=== PATIENT | female | born 1970 | race Caucasian/White ===

== ENCOUNTER 2024-05-16 15:38 | Emergency (ER) | payer MEDICARE ==
[~2024-05-16] VITALS: Ht 175.3 cm; Wt 78.2 kg
[2024-05-16 15:53] VITALS: TEMP 97
[2024-05-16 18:35] LABS: BASOPHILS # (AUTO) 0.1 X10'3 (0-0.2); EOSINOPHILS % (AUTO) 0.5 % (0-6); LYMPHOCYTES # (AUTO) 1.4 X10'3 (1.1-4.8); LYMPHOCYTES % (AUTO) 15.3 % (21-51); MEAN PLATELET VOLUME 7.4 FL (7.4-10.4); MONOCYTES # (AUTO) 1.3 X10'3 (0-0.9); MONOCYTES % (AUTO) 13.6 % (2-12); NEUTROPHILS # (AUTO) 6.5 X10'3 (1.8-7.7); NEUTROPHILS % (AUTO) 69.6 % (42-75); PLATELET COUNT 521 X10'3 (140-440); WHITE BLOOD COUNT 9.4 X10'3 (4.5-11.0)
[2024-05-16 18:42] LABS: ALBUMIN 3.6 G/DL (3.4-5.0); ANION GAP 8 (8-16); BLOOD UREA NITROGEN 6 MG/DL (7-18); BUN/CREATININE RATIO 7.5 (10.0-20.0); CHLORIDE 101 MMOL/L (99-107); GLUCOSE 121 MG/DL (70-104); POTASSIUM 4.4 MMOL/L (3.5-5.1); SODIUM 135 MMOL/L (135-145); TOTAL CARBON DIOXIDE 25.7 MMOL/L (24-32); eCRCL 85 ML/MIN; eGFR 75 ML/MIN
[2024-05-16 18:57] LABS: HEMATOCRIT 35.6 % (35.0-45.0); HEMOGLOBIN 11.3 g/dl (12.0-16.0); MEAN CORPUSCULAR HEMOGLOBIN 20.7 PG (27.0-31.0); MEAN CORPUSCULAR HGB CONC 31.7 g/dL (33.0-36.5); MEAN CORPUSCULAR VOLUME 65.4 FL (78-98); RED BLOOD COUNT 5.45 X10'6 (4.20-5.60)
[2024-05-16 18:58] LABS: RED CELL DISTRIBUTION WIDTH 20.4 % (11.5-14.5)
[2024-05-16 19:39] LABS: ANISOCYTOSIS 2+; MICROCYTOSIS 2+; PLATELET ESTIMATE INCREASED
[2024-05-16 19:49] VITALS: BP 133/92; PULSE 109; O2SAT 97
[2024-05-16] MEDS ORDERED: AMOX500C2 PO (19:53)
[2024-05-16] MEDS: amoxicillin 250mg capsule PO ONE (20:24)
[2024-05-16] MEDS: ondansetron 4mg rapidly disintigrating tab PO ONE (20:24)
[2024-05-16 20:26] VITALS: RESP 16
== END 2024-05-16 20:28 | disposition home or self-care (01) ==
LOC: ER 15:38
DX: R59.1 Generalized enlarged lymph nodes (principal)
CPT/HCPCS: 36415; 80048; 83605; 84145; 85008; 85025; 87040; 99283

== ENCOUNTER 2025-04-03 14:04 | Outpatient (CLI) | payer MEDICARE ==
[~2025-04-03] VITALS: Ht 160.7 cm; Wt 71.2 kg
[2025-04-03] MEDS: albuterol 2.5 MG/3 ML nebule NEB ONE (15:40)
[2025-04-03 15:41] VITALS: PULSE 121; RESP 16; O2SAT 91
[2025-04-03 15:55] VITALS: PULSE 136; RESP 16
--- NOTE | 2025-04-03 16:33 | PROCEDURE NOTE - Respiratory ---
Procedure Note-Respiratory Providers to CC Copies To 1: REBECCA CALHOUN MD Procedure Name: This is a complete pulmonary function study dated April 03, 2025. Spirometry measurements: There is very significant reduction in both the forced vital capacity and the FEV1. The FEV1 ratio is normal. All of the measured fl ow rates show some degree of reduction. After inhaled bronchodilator was administered, there is no appreciable change in the flow volume curve. Spirometry measurements suggest elements of obstructive ventilatory defect together with elements of restrictive ventilatory defect. Lung volume measurements: The total lung capacity is significantly reduced at 57% predicted value. This confirms a restrictive ventilatory defect. The functional residual capacity is at the lower limit of normal. Lung diffusion measurement: The DLCO is depressed at 58% predicted value. The KVO measurement is actually in the normal range. The alveolar volume measurement is significantly reduced. Airway resistance measurement: The airway resistance is elevated. Conclusion: This study is severely abnormal. There is combined abnormality including elements of restrictive ventilatory defect together with obstructive ventilatory defect. The airway obstruction is consistent with the patient's diagnosis of COPD. The restrictive ventilatory process may relate to the patient's metastatic cancer to the lung. We have no previous studies for comparison. Close pulmonary follow-up is recommended. JULIO JOSE MD Apr 03, 2025 16:33
== END 2025-04-03 23:59 | disposition home or self-care (01) ==
LOC: RT 14:04
PROVIDERS: ATTEND Internal Medicine
DX: J44.9 Chronic obstructive pulmonary disease, unspecified (principal)
CPT/HCPCS: 94060; 94727; 94729; 94760; J7030

== ENCOUNTER 2025-05-12 13:33 | Inpatient (IN) | payer MEDICARE ==
[~2025-05-12] VITALS: Ht 162.6 cm; Wt 54.0 kg
--- NOTE | 2025-05-12 13:51 | ELECTROCARDIOGRAPH REPORT ---
[facility] Test Date: 2025-05-12 Test Time: 13:39:33 Pat Name: LIBERTY MORRIS Department: EMERGENCY ROOM [id number] Room: [place] [address] Gender: F Application Support: : 1970 Requested By: REG JACOBO Order Number: [id number] Reading MD: Dr. JUAN C Ruiz Measurements Intervals [place] Rate: 101 P: 69 NE: 151 QRS: 128 QRSD: 106 T: -24 QT: 372 QTc: 483 Interpretive Statements Sinus tachycardia Right axis deviation Low voltage, precordial leads Nonspecific T abnormalities, inferior leads Electronically Signed On 05-15-2025 19:22:[address] JUAN C Ruiz Please click the below link to view image of tracing.
[2025-05-12 14:21] LABS: MEAN PLATELET VOLUME 7.5 FL (7.4-10.4); RED CELL DISTRIBUTION WIDTH 20.3 % (11.5-14.5)
[2025-05-12 14:26] LABS: INR 1.6 INR
--- NOTE | 2025-05-12 14:26 | RADIOLOGY REPORT ---
EXAM: DI CHEST,SINGLE VIEW CLINICAL HISTORY: SOB TECHNIQUE: Single AP view of the chest WID: COMPARISON: None FINDINGS: Lines and tubes: Right IJ chest port with the tip projecting over the low SVC Chest: Upper limits of normal-sized heart. Patchy and confluent mixed airspace opacities bilaterally. No pneumothorax or definite pleural effusion. The osseous structures are grossly intact. IMPRESSION: 1. Diffuse patchy and confluent mixed airspace opacities which could reflect Multifocal Pneumonia. 2. Correlate with clinical history as metastatic disease can also contribute to this appearance if there is a history of malignancy.
[2025-05-12 14:32] LABS: CREATININE 1.88 MG/DL (0.40-0.90); PRO BRAIN NATRIURETIC PEPTIDE 17341 PG/ML (0-125); TOTAL CARBON DIOXIDE 27.5 MMOL/L (24-32); eCRCL 29 ML/MIN; eGFR 28 ML/MIN
[2025-05-12 14:38] LABS: APTT 31 SECONDS (22-32); BANDS% (MANUAL) 2.0 % (0-10); LYMPHOCYTES % (MANUAL) 7.0 % (21-51); METAMYLEOCYTES% (MANUAL) 1.0 % (0-0); MONOCYTES % (MANUAL) 6.0 % (2-12); NEUTROPHILS % (MANUAL) 84.0 % (42-75); PLATELET ESTIMATE INCREASED
--- NOTE | 2025-05-12 14:47 | Physician Documentation ---
History of Present Illness ~ Chief Complaint: Shortness of Breath Stated Complaint: SOB Time Seen by MD: 13:42 Primary Medical Doctor: TAINA ([facility]) Source: patient Mode of Arrival: EMS Exam Limitations: no limitations HPI 54-year-old female with metastatic colon to the lungs who is there due to the worsening of her chronic shortness of breath when started yesterday. She states it got progressively worse to the point that she decided to come to the ER today. Patient did discontinue her Eliquisa week ago due to an upcoming lung biopsy tentatively scheduled next week to see if she will benefit from a new chemotherapy drug. Patient has a cough but this is not unusual for her given her cancer. Patient denies fever, chills, chest pain, abdominal pain, sinus pain, sore throat, urinary symptoms. Patient has no LE edema. Medication Reconciliation Allergies: Coded Allergies: No Known Allergies (Unverified , 05/16/24) Scheduled Methadone Hcl (Methadone Hcl), 1 TAB PO BID, (Reported) Miscellaneous Medications Gabapentin (Gabapentin), 200, (Reported) Oxycodone Hcl (Oxycodone Hcl), (Reported) Past Medical History Past Medical History: Colon Cancer, Lung Cancer Past Surgical History: no surgical history Review of Systems All Other Systems at this time: Reviewed and Negative Physical Exam Vital Signs: Temperature: 97.4, Source: Oral, Heart Rate: 99, Respiratory Rate: 17, BP: 94/53, Pulse Oximetry: 93, Weight: 54.000 Physical Exam GENERAL: Alert, MILD DISTRESS WHEN PATIENT STARTS TALKING SHE IS CLEARLY SHORT OF BREATH, DIFFICULTY SPEAKING IN COMPLETE SENTENCES. HEENT: NCAT, EOMI, PERRL, normal oropharynx, moist oral mucosa. NECK: Supple, trachea midline. CARDIAC: Regular rate and rhythm, no murmurs, rubs, or gallops. Equal distal pulses. No lower extremity edema, cap refill less than 2 seconds. RESPIRATORY: Equal breath sounds, clear to auscultation bilaterally, no respira tory distress. GASTROINTESTINAL: Non distended, soft, nontender, No guarding or rebound. MUSCULOSKELETAL: Normal range of motion, nontender, no swelling. NEUROLOGICAL: Awake, alert, and oriented x 3. SKIN: Warm/dry, no pallor, no rash. PSYCH: Alert and appropriate. Affect congruent with mood. Speech is clear. Good eye contact. Progress Results/Orders Results/Orders Orders - OPPECHYNAO,REG T PA Chest,Single View (05/12/25 14:05) Monitor (05/12/25 13:44) Culture Blood (05/12/25 14:41) Covid19 Binax Poc Result Entry (05/12/25 14:41) Heparin 25,000 Unit/250ml Bag (Heparin 2 (05/12/25 15:10) Heparin 10,000 Unit/Ml 1ml (Heparin 10,0 (05/12/25 15:10) Cbc/Diff (05/13/25 03:00) Cbc/Diff (05/14/25 03:00) Cbc/Diff (05/15/25 03:00) Cbc/Diff (05/16/25 03:00) Cbc/Diff (05/17/25 03:00) Cta Chest Pe (05/12/25 16:02) Dvt Ptt (05/12/25 22:00) Page Hospitalist (05/12/25 18:13) Normal Saline 1000ml (0.9% Sodium Chlori (05/12/25 18:25) Completed Orders - REG JACOBO T PA Electrocardiogram (05/12/25 13:44) Cbc/Diff (05/12/25 13:44) Chest,Single View (05/12/25 14:05) PBNP (05/12/25 13:44) BMP (05/12/25 13:44) PTT (05/12/25 13:44) Pt Inr (05/12/25 13:44) D-Dimer (05/12/25 13:44) Hs Troponin I W Calculations (05/12/25 13:44) Hs Troponin I W Calculations (05/12/25 15:44) Man Diff (05/12/25 14:01) Lacticsepsis (05/12/25 14:41) Procalcitonin (05/12/25 14:41) Influenza Type A&B Rapid Test (05/12/25 14:41) Heparin Drip Dvt/Pe*Rph Dose (Heparin (05/12/25 15:00) Normal Saline 1000ml (0.9% Sodium Chlori (05/12/25 15:00) Heparin 10,000 Unit/Ml 1ml (Heparin 10,0 (05/12/25 15:10) Message To Nursing (05/12/25 15:15) Cta Chest Pe (05/12/25 16:02) Iohexol 350mg/Ml 100ml (Omnipaque 350mg/ (05/12/25 16:17) Lactic,2hr (05/12/25 17:01) Ceftriaxone 2gm/D5w 50ml Bag (Rocephin 2 (05/12/25 18:20) Medications Received in ER Medications (Trade) Dose Ordered Sig/Deidre Route PRN Reason Start Time Stop Time Status Last Admin Dose Admin (0.9% sodium chloride (NS) 1000ml IV soln) 1,000 ml ONCE ONCE IVB 05/12/25 15:00 05/12/25 15:01 DC 05/12/25 16:03 1,000 ML (heparin 10,000 unit/ml 1ml inj) 4,300 units ONCE ONCE IV 05/12/25 15:10 05/12/25 15:11 DC 05/12/25 16:01 4,300 UNITS Heparin Sodium/ Dextrose 250 ml @ 10 mls/hr Q25H PRN IV TO MAINTAIN PTT WITHIN RANGE 05/12/25 15:10 05/12/25 16:02 10 MLS/HR Vital Signs 05/12/25 05/12/25 05/12/25 05/12/25 13:36 14:08 14:09 16:34 Temp 97.4 97.4 Pulse 101 99 82 Resp 16 17 18 B/P (MAP) 94/53 94/53 (67) 171/87 (115) Pulse Ox 91 93 93 O2 Flow Rate 0 05/12/25 18:36 Pulse 87 Resp 18 B/P (MAP) 134/53 (80) Pulse Ox 93 O2 Flow Rate 0 Laboratory Tests Test 05/12/25 14:01 05/12/25 14:03 05/12/25 15:15 05/12/25 15:43 White Blood Count 14.9 H Red Blood Count 4.10 L Hemoglobin 10.2 L Hematocrit 32.3 L Mean Corpuscular Volume 78.7 Mean Corpuscular Hemoglobin 24.9 L Mean Corpuscular Hemoglobin Concent 31.7 L Red Cell Distribution Width 20.3 H Platelet Count 643 H Mean Platelet Volume 7.5 Neutrophils (%) (Auto) 87.7 H Lymphocytes (%) (Auto) 5.4 L Monocytes (%) (Auto) 6.6 Eosinophils (%) (Auto) 0.1 Basophils (%) (Auto) 0.2 Neutrophils # (Auto) 13.0 H Lymphocytes # (Auto) 0.8 L Monocytes # (Auto) 1.0 H Eosinophils # (Auto) 0.0 Basophils # (Auto) 0.0 CBC Comment Differential Total Cells Counted 100 Neutrophils % (Manual) 84.0 H Band Neutrophils % 2.0 Lymphocytes % (Manual) 7.0 L Monocytes % (Manual) 6.0 Metamyelocytes % 1.0 H Platelet Estimate Increased Red Blood Cell Morphology Perf Polychromasia 1+ Hypochromasia 1+ Basophilic Stippling Anisocytosis 3+ Microcytosis 1+ Prothrombin Time 15.3 H INR International Normalized Ratio 1.6 Activated Partial Thromboplast Time 31 D-Dimer 22.76 H D-Dimer Comment Coagulation Comments Sodium Level 133 L Potassium Level 5.6 H Chloride Level 96 L Carbon Dioxide Level 27.5 Anion Gap 10 Blood Urea Nitrogen 32 H Creatinine 1.88 H Estimated GFR/1.73 m2 28 BUN/Creatinine Ratio 17.0 Glucose Level 113 H Calcium Level 8.8 Troponin I High Sensitivity 423 *H 405 *H Pro-B-Type Natriuretic Peptide 66003 H Albumin 1.8 L Procalcitonin 2.01 H Chemistry Comments Lactic Acid Level 3.9 H 3.0 H Influenza Type A Antigen Negative Influenza Type B Antigen Negative SARS-CoV-2 Antigen (Rapid) Negative Troponin I High Sens Percent Delta 4 Troponin I Hi Sens Absolute Change -18 Microbiology Date/Time Source Procedure Growth Status 05/12/25 15:43 Blood Iv Start Blood Culture - Preliminary NEGATIVE (LESS THAN 24 HOURS) Resulted Heart Score: Heart Score Response (Comments) Value History Slightly Suspicious 0 EKG Normal 0 Age 45-64 1 Risk Factors 1 or 2 risk factors 1 Troponin 1-2 x's Normal limit 1 Total 3 Medical Decision Making Additional information obtaine: old records Findings previous visits Heart Score: 3 Differential Dx:Considerations: Include: anxiety, asthma, bronchitis, cardiogenic shock, CHF, COPD, dysrhythmia, hypertension, accelerated, hypertension, essential, hypertension, malignant, hyperventilation, hyponatre estevan, myocardial infarction, panic attack, pneumonia, pneumonitis, pneumothorax, PSVT, pulmonary embolism, respiratory distress, respiratory failure, sinusitis, upper resp. infection, other Departure Time of Disposition: 19:02 Disposition: 01 HOME / SELF CARE / HOMELESS Impression: Primary Impression: metastatic colon cancer to liver and lungs Additional Impressions: acute on chronic sob Hypoxic Condition: Fair Referrals: NO PRIMARY CARE PROVIDER (PCP) Education Educated: Patient Educated regarding: diagnosis, treatment, need for follow up Signature Scribe Signature: x Attestation: REG Beal May 12, 2025 14:47
[2025-05-12] MEDS: HEPARIN DRIP DVT/PE -**PHARMACIST TO DOSE IV ONE (15:00)
[2025-05-12] MEDS ORDERED: heparin 10,000 units/1 ML INJ IV PRN (15:10)
[2025-05-12 15:48] LABS: INFLUENZA TYPE A ANTIGEN RAPID NEGATIVE (Negative); INFLUENZA TYPE B ANTIGEN RAPID NEGATIVE (Negative)
[2025-05-12] MEDS: heparin 10,000 units/1 ML INJ IV ONE (16:01)
[2025-05-12] MEDS: heparin 25,000 UNIT/250ml bag 250 ML IV PRN (16:02)
[2025-05-12] MEDS: MESSAGE TO NURSING IV ONE (16:02)
[2025-05-12] MEDS: normal saline 1000ML IV soln IVB ONE (16:03)
--- NOTE | 2025-05-12 17:57 | RADIOLOGY REPORT ---
EXAM: CT CTA CHEST PE W/ IV CONTRAST HISTORY: sob, d dimer of 22, metastatic colon ca to lungs TECHNIQUE: CT angiogram was performed. CT scans at this facility use dose modulation, iterative reconstruction, and/or weight based dosing when appropriate to reduce radiation dose to as low as reasonably achievable. Coronal and sagittal reformations and maximum intensity projection images were created from the transaxial source data by the ultrasound technologist and workstation, as well as 3-D volume rendered images with MIPs. COMPARISON: None FINDINGS: [LOWER NECK]: Unremarkable [LYMPH NODES/MEDIASTINUM]: prominent mediastinal lymph nodes correlated paratracheal lymph node measures 1.9 cm. Right hilar lymph node measures 1.7 cm. [CARDIOVASCULAR]: Normal cardiac size. No pericardial effusion. No aneurysmal dilatation of the great vessels. No significant coronary artery calcifications. [PULMONARY ARTERIES]: No pulmonary arterial filling defect. Normal caliber of the main pulmonary artery. No evidence of elevated right heart pressures. [UPPER ABDOMEN]: Extensive hepatic metastases with cannonball lesions. Abnormal left adrenal gland mass, 2.4 cm. Paraesophageal and gastrohepatic and partially visualized sang hepatis lymphadenopathy [MUSCULOSKELETAL]: No acute fracture or aggressive focal osseous lesion. [CHEST WALL]: Unremarkable. [LUNG PARENCHYMA/PLEURAL SPACE]: Extensive cannonball lesions with superimposed marginal areas of ground-glass extensively involving the majority of the long with peribronchovascular Superimposed distribution compatible with both hematogenous and lymphatic spread. No pleural effusion or pneumothorax. IMPRESSION: 1. No CTA evidence of pulmonary embolism. extensive pulmonary, hepatic and lymphatic metastatic disease.
[2025-05-12] MEDS ORDERED: OXYC10TA47 PO (18:46)
[2025-05-12] MEDS ORDERED: GABA-530 PO (18:46)
[2025-05-12] MEDS ORDERED: METH-806 PO (18:46)
[2025-05-12] MEDS: normal saline 1000ml 2,000 ML IV ONE (18:59)
[2025-05-12] MEDS: CefTRIAXone 2gm/D5W 50ml BAG 50 ML IV ONE (19:00)
[2025-05-12] MEDS ORDERED: methadone 10mg tablet PO ONE (19:15)
[2025-05-12] MEDS ORDERED: ondansetron 4mg rapidly disintigrating tab PO PRN (19:30)
[2025-05-12] MEDS ORDERED: magnesium hydroxide 30ml (MOM) UD suspension PO PRN (19:30)
[2025-05-12] MEDS ORDERED: mag hydrox/Alum hydrox/simeth 30ml oral suspension PO PRN (19:30)
[2025-05-12] MEDS ORDERED: potassium Cl 20 mEq SR tablet PO PRN ×2 (19:30)
[2025-05-12] MEDS ORDERED: magnesium Cl slow-release 64mg tablet PO PRN (19:30)
[2025-05-12] MEDS ORDERED: morphine 4 MG/ML inj SYRINge IV PRN (19:30)
[2025-05-12] MEDS ORDERED: magnesium sulf-water 4G/100mL 100 ML IV PRN (19:30)
[2025-05-12] MEDS ORDERED: potassium Cl 40MEQ/1/2NS 520ml 520 ML IV PRN (19:30)
[2025-05-12] MEDS ORDERED: magnesium sulf-water 2g/50mL 50 ML IV PRN (19:30)
[2025-05-12] MEDS ORDERED: ondansetron/PF 4mg/2ml inj IV PRN (19:30)
[2025-05-12] MEDS: K and/or MAG REPLACEMENT MC SCH (20:00)
[2025-05-12] MEDS: docusate sod 100mg capsule PO SCH (20:00)
--- NOTE | 2025-05-12 20:26 | HISTORY AND PHYSICAL-Residence ---
History & Physical Providers to CC Resident Creating Document: BLAKE WYATT, RES ~ History of Present Illness Primary Medical Doctor: TAINA ([facility]) Reason for Admit\Complaint: Shortness of Breath History of Present Illness 54-year-old female with a known history of metastatic colon cancer to the lungs, initially diagnosed in September 2020, presents to the Emergency Department due to worsening chronic shortness of breath that began yesterday. The dyspnea has progressively worsened, prompting her to seek emergency care today. She reports a chronic cough, which is typical for her due to her cancer but notes that it has recently worsened and is occasionally associated with abdominal pain. At home, her oxygen saturation was noted to be 81% on room air. She is not on home oxygen therapy but currently requires 4 L of supplemental oxygen in the ED. She also reports associated nausea and vomiting, though she denies any hematemesis. The patient was previously on intermittent chemotherapy and started Stivarga approximately six months ago. She recently discontinued Stivarga as her oncologist plans to initiate a new chemotherapy regimen, though she is unsure of the name of the new medication. Additionally, she stopped taking Eliquis one week ago in preparation for a lung biopsy tentatively scheduled for next week to assess candidacy for the new treatment. She denies fever, chills, chest pain, sinus pain, sore throat, urinary symptoms, and lower extremity edema. Allergies: Coded Allergies: No Known Allergies (Unverified , 05/16/24) Home Medications Home Medications Active Reported Gabapentin 100 Mg Capsule 200 Oxycodone Hcl 10 Mg Tablet Methadone Hcl 5 Mg Tablet 1 Tab PO BID Past Surgical History Surgical History Comment No surgical history Past Social History Social History Comment Primary care physician-[facility] Oncologist-Dr. Fitzgerald- [facility] [employer] Blacksmith-Dr. Paige Mendoza She lives in her home with her She quit smoking 20 years ago-previously used to smoke 1 cigarette a day during her 30s She is not an alcohol user, denies any substance use ROS All Other Systems: Reviewed and Negative Constitutional: Reports: no symptoms reported Eyes: Reports: no symptoms reported Respiratory: Reports: cough (Patient has a history of chronic cough), shortness of breath (Patient endorses worsening of the shortness of breath, today her pulse oximeter at home shows saturation of 80%) Cardiovascular: Reports: no symptoms reported Gastrointestinal: Reports: abdominal pain Genitourinary: Reports: no symptoms reported Female Genitalia: Reports: no reported symptoms Neurological: Reports: no symptoms reported Musculoskeletal: Reports: no symptoms reported Integumentary: Reports: no symptoms reported Allergic/Immunologic: Reports: no symptoms reported Hematologic/Lymphatic: Reports: no symptoms reported Endocrine: Reports: no symptoms reported Psychiatric: Reports: no symptoms reported Exam Vitals: Vital Signs Date Time Temp Pulse Resp B/P (MAP) Pulse Ox O2 Delivery O2 Flow Rate FiO2 05/12/25 19:34 05/12/25 18:36 87 18 93 0 05/12/25 14:08 97.4 General: GENERAL: Awake, alert, oriented. HEENT : Normocephalic, atraumatic, pupils equal and reactive to light, extraocular movements intact, mild conjunctival pallor ,oral mucosa dry. NECK: neck is supple, trachea midline, mild right cervical lymphadenopathy, no thyromegaly, no JV distention RESPIRATORY: Chest expansion equal bilaterally, bilateral crackles heard all over the lung kunz, No use of accessory muscles, no tenderness on palpation, CARDIOVASCULAR: S1 and S2 heard, no murmurs, no rubs, or gallops ABDOMEN: Soft, nontender, nondistended, bowel sounds present and normoactive. NEUROLOGICAL: Alert, oriented, normal memory, speech is normal Cranial nerves II-XII- intact Motor strength 5/5 Sensation-intact in all extremities Reflexes +2 and symmetrical Coordination is intact EXTREMITIES: No Edema, peripheral pulses felt, no deformities, mild peripheral cyanosis noted over the fingernails Psychiatric:Appropriate mood and affect,No hallucinations or suicidal ideation Diagnostic Data Last Recorded Lab Results: 05/13/258 05/13/25 0136 Diagnostic Data: Laboratory Tests Test 05/12/25 14:01 Prothrombin Time 15.3 SECONDS (9.0-12.0) H INR International Normalized Ratio 1.6 INR Activated Partial Thromboplast Time 31 SECONDS (22-32) D-Dimer 22.76 MG/L FEU (0-0.50) H D-Dimer Comment Coagulation Comments Advance Care Planning Advanced Care plannin - 30 Minutes Additional Plan 54 years old female with past medical history of metastatic colon cancer he is currently evaluated for sepsis Sepsis 2/2 multifocal pneumonia Temperature-97, respiratory rate 26, heart rate-103 Lactate-3, 3.3, 2.3 Differentials include-metastatic lung disease ED gvhaiu-X-mcjeb is 22.7 and the patient was immediately started on heparin protocol, later CTA rules out PE, and after that heparin protocol was held and patient was also received ceftriaxone and Zithromax in ED once Patient received IV fluid per protocol in ED and we started the patient on IV normal saline 100 cc/hour Started patient on IV Zosyn and IV vancomycin pharmacy to dose Given a dose of Solu-Medrol 125 mg once and started IV Solu-Medrol 40 mg IV b.i.d. Follow up with blood culture and daily labs Hypoxemic respiratory failure 2/2 multifocal pneumonia Differentials-congestive heart failure as patient's pro [id number] Patient is currently on 4 L oxygen maintaining a saturation 94 Started patient on IV Zosyn and IV vancomycin pharmacy to dose Given a dose of Solu-Medrol 125 mg once and started IV Solu-Medrol 40 mg IV b.i.d. Follow up with blood culture and daily labs Follow up with echocardiogram Acute kidney injury 2/2 vasomotor neuropathy BUN-32, creatinine-1.88 Patient received IV fluids in ED and patient is currently on normal saline 100 cc/hour Follow up with spot urine studies Troponinemia possibly secondary to sepsis Type 2 CO Initial troponin-405, 338 trending down History of chronic pain Started on home med gabapentin Continue home med after med Code Status: Full DVT prophylaxis: Heparin subQ Analgesia/Sedation: Morhpine Line/tube: Peripheral PT: Order Prognosis: Guarded Disposition: Patient will be monitored in PCU with telemetry Blake Wyatt PGY1-Internal Medicine Resident Date of Service: May 12, 2025 Billing Provider: VALE RIOS MD Assessment/Plan Assessment agree with resident IM 3 BLAKE WYATT, RES May 12, 2025 20:26 VALE RIOS MD May 13, 2025 04:28
[2025-05-12] MEDS: azithromycin/NS 500mg/250ml 250 ML IV ONE (21:45)
[2025-05-12] MEDS: normal saline 1000ml 1,000 ML IV SCH (21:50)
[2025-05-12] MEDS: methadone 5mg tablet PO ONE (21:50)
[2025-05-12] MEDS: ipratropium/albuterol 3ml nebule NEB SCH (21:55)
[2025-05-12 21:57] VITALS: PULSE 96; RESP 18; O2SAT 94
[2025-05-12 22:04] VITALS: PULSE 97; RESP 24
[2025-05-12 22:54] VITALS: BP 105/63; PULSE 101; RESP 14; TEMP 97.9; O2SAT 94
[2025-05-12] MEDS: vancomycin inj 500 MG in normal saline 100ml IV soln 100 ML IV SCH (23:27)
[2025-05-12 23:54] VITALS: RESP 14
[2025-05-13] VITALS (11 sets, daily range): BP systolic 96–120; BP diastolic 54–82; PULSE 70–106; RESP 12–24; TEMP 97.2–98.4; O2SAT 2–94
[2025-05-13] MEDS: heparin, porcine 5000 units/ml vial SQ SCH (01:00)
[2025-05-13] MEDS: piperacillin/tazo 3.375gm/50ml 50 ML IV ONE (01:10)
[2025-05-13] MEDS: piperacillin/tazo 3.375gm/50ml 50 ML IV SCH (01:30)
[2025-05-13] MEDS: morphine 4 MG/ML inj SYRINge IV PRN (01:50)
[2025-05-13] MEDS ORDERED: PERFLUTREN PROTEIN-A MICROSPHR (Optison) 0.22 MG/ML 3ML VIAL IV ONE (02:05)
[2025-05-13 02:07] LABS: MEAN PLATELET VOLUME 7.7 FL (7.4-10.4); RED CELL DISTRIBUTION WIDTH 20.6 % (11.5-14.5)
[2025-05-13 02:42] LABS: CREATININE 0.83 MG/DL (0.40-0.90); TOTAL CARBON DIOXIDE 26.9 MMOL/L (24-32); eCRCL 66 ML/MIN; eGFR 72 ML/MIN
[2025-05-13] MEDS: FLU VACC TS2025-26(6MOS UP)/PF (FLULAVAL) 45 MCG/0.5 ML SYRINGE IMVAC ONE (08:49)
[2025-05-13] MEDS: vancomycin/NS 1 GM ADD-VANTAGE 250 ML X 1 DOSE IV SCH (12:10)
[2025-05-13] MEDS ORDERED: oxyCODONE IR 5mg (immed. release) tablet PO PRN (13:20)
[2025-05-13] MEDS ORDERED: POTA-206 PO (15:24)
[2025-05-13] MEDS ORDERED: FURO20TA4 PO (15:24)
--- NOTE | 2025-05-13 17:38 | CARDIOLOGY REPORT ---
APPROVED REPORT EXAM: Comprehensive 2D, Doppler, and color-flow Echocardiogram. Patient Location: [facility] Heart Rate: 80 bpm Rhythm: NSR Indications CONGESTIVE HEART FAILURE ELEVATED PROBNP 49045 HS TROPONIN 423, 405, 338 2D Dimensions RVDd 3.8 cm IVSd 0.9 (0.7-1.1cm) LVDd 4.5 cm PWd 1.0 (0.7-1.1cm) IVSs 1.5 (0.8-1.2cm) LVDs 2.9 (2.5-4.0cm) PWs 1.7 (0.8-1.2cm) LVOT Diameter 1.98 (1.8-2.4cm) LVEF(%) 64.8 (>50%) FS (%) 35.3 % SV 60.8 ml CO 5.0 L/min M-Mode Dimensions Left Atrium(MM) 4.12 (2.5-4.0cm) Aortic Root 3.43 (2.2-3.7cm) Aortic Cusp Exc 2.09 (1.5-2.0cm) Aortic Valve AoV Peak Neri. 89.0 cm/s AoV VTI 16.2 cm AO Peak GR. 3.2 mmHg AO Mean GR. 2 mmHg LVOT VTI 14.95 cm LVOT Peak Neri. 70.4 cm/s QUINTIN(VTI)/BSA 2.86 cm2/m2 QUINTIN (VTI) 2.86 cm2 AV DI 0.92 % Mitral Valve MV E Velocity 42.7 cm/s MV Peak Gr. 1 mmHg MV A Velocity 53.2 cm/s MV PHT 56 ms E/A Ratio 0.8 MVA (PHT) 3.93 cm2 MV VMax 48.9 cm/s Tricuspid Valve TR P. Velocity 263 cm/s RAP ESTIMATE 5 mmHg TR Peak Gr. 28 mmHg RVSP 33 mmHg LEFT VENTRICLE Normal LV size and wall thickness. Overall systolic function is normal. LVEF is 60-65%. RIGHT VENTRICLE Right ventricle is mildly dilated. Mildly reduced RV function. RVSP is 33 mmHg. ATRIA Left atrium is mildly dilated. Right atrium is mildly dilated. AORTIC VALVE Trileaflet AV appears mildly sclerotic without stenosis. Trace insufficiency. MITRAL VALVE The mitral valve is normal in structure. Trace regurgitation. TRICUSPID VALVE The tricuspid valve is normal in structure. Mild/moderate regurgitation. PULMONIC VALVE Normal PV without stenosis with mild insufficiency. GREAT VESSELS The aortic root is normal in size. The ascending aorta is normal in size. . The IVC is normal in size and collapses >50% with inspiration. PERICARDIUM Normal pericardium. No effusion. Other Information Study Quality: Adequate Conclusion Normal LV size and wall thickness. Overall systolic function is normal. LVEF is 60-65%. Right ventricle is mildly dilated. Mildly reduced RV function. RVSP is 33 mmHg. Left atrium is mildly dilated. Right atrium is mildly dilated. Trileaflet AV appears mildly sclerotic without stenosis. Trace insufficiency. The mitral valve is normal in structure. Trace regurgitation. The tricuspid valve is normal in structure. Mild/moderate regurgitation. Normal PV without stenosis with mild insufficiency. Normal pericardium. No effusion.
[2025-05-13] MEDS ORDERED: LEVO-65 PO (19:10)
--- NOTE | 2025-05-13 19:43 | DISCHARGE SUMMARY ---
Discharge Summary Providers to CC ~ Discharge Summary Admission Diagnosis: Sepsis, Multifocal Pneumonia, [place] Hospital Course DATE OF ADMISSION: 2024 DATE OF DISCHARGE:05/13 CBC testing done on May 13, 2025 WBC 13.6 hemoglobin 9.9 hematocrit 30.8 platelet count 556 sed rate 90. CMP done on May 13, 2025 sodium 133 potassium 4.6 AST 1286 ALT 342 alkaline phosphatase 577 troponin 338 CRP 32.48 procalcitonin 2.0 creatinine 0.83 GFR 72 lactic acid 2.0, calcium 8.2, CRP 32.48. Blood culture negative showed no growth after one day. EchocardiogramConclusion Normal LV size and wall thickness. Overall systolic function is normal. LVEF is 60-65%. Right ventricle is mildly dilated. Mildly reduced RV function. RVSP is 33 mmHg. Left atrium is mildly dilated. Right atrium is mildly dilated. Trileaflet AV appears mildly sclerotic without stenosis. Trace insufficiency. The mitral valve is normal in structure. Trace regurgitation. The tricuspid valve is normal in structure. Mild/moderate regurgitation. Normal PV without stenosis with mild insufficiency. Normal pericardium. No effusion. CTA CHEST PEIMPRESSION: 1. No CTA evidence of pulmonary embolism. extensive pulmonary, hepatic and lymphatic metastatic disease. CHEST,SINGLE VIEW-IMPRESSION: 1. Diffuse patchy and confluent mixed airspace opacities which could reflect Multifocal Pneumonia. 2. Correlate with clinical history as metastatic disease can also contribute to this appearance if there is a history of malignancy. Discharge Diagnosis\\Comment: metastatic colon cancer to the lungs and liver , worsening chronic shortness of breath , it does post chemotherapy, sepsis secondary to multifocal pneumonia, hypoxemic respiratory failure secondary to multifocal pneumonia, possible diastolic congestive heart failure proBNP 1 7341, acute kidney injury secondary to vasomotor neuropathy, troponinemia possibly secondary to sepsis type 2 UT, chronic pain on methadone. Operations\\Procedures: None Consultants: None Complications: None Condition on DC: Stable New Medications: Furosemide (Furosemide) 20 Mg Tablet 1 TAB PO DAILY for 30 Days, #30 TAB 0 Refills Levofloxacin (Levofloxacin) 500 Mg Tablet 500 MG PO DAILY for 7 Days, #7 TAB Potassium Chloride (K-Dur) 10 Meq Tab.prt.sr 1 TAB PO DAILY for 30 Days, #30 TAB 0 Refills Continued Medications: Gabapentin (Gabapentin) 100 Mg Capsule 200 MG PO TID Methadone Hcl (Methadone Hcl) 5 Mg Tablet 1 TAB PO BID Oxycodone Hcl (Oxycodone Hcl) 10 Mg Tablet 10 MG PO Q4H PRN for breakthrough pain (4-10) Discharge Summary: As per admitting provider's history and physical note" 54-year-old female with a known history of metastatic colon cancer to the lungs, initially diagnosed in September 2020, presents to the Emergency Department due to worsening chronic shortness of breath that began yesterday. The dyspnea has progressively worsened, prompting her to seek emergency care today. She reports a chronic cough, which is typical for her due to her cancer but notes that it has recently worsened and is occasionally associated with abdominal pain.At home, her oxygen saturation was noted to be 81% on room air. She is not on home oxygen therapy but currently requires 4 L of supplemental oxygen in the ED. She also reports associated nausea and vomiting, though she denies any hematemesis.The patient was previously on intermittent chemotherapy and started Stivarga approximately six months ago. She recently discontinued Stivarga as her oncologist plans to initiate a new chemotherapy regimen, though she is unsure of the name of the new medication. Additionally, she stopped taking Eliquis one week ago in preparation for a lung biopsy tentatively scheduled for next week to assess candidacy for the new treatment. She denies fever, chills, chest pain, sinus pain, sore throat, urinary symptoms, and lower extremity edema. Hospital course Sepsis 2/2 multifocal pneumonia Temperature-97, respiratory rate 26, heart rate-103 Lactate-3, 3.3, 2.3 Differentials include-metastatic lung disease ED [id number]-[id number] is 22.7 and the patient was immediately started on heparin protocol, later CTA rules out PE, and after that heparin protocol was held and patient was also received ceftriaxone and Zithromax in ED once Patient received IV fluid per protocol in ED and we started the patient on IV normal saline 100 cc/hour Started patient on IV Zosyn and IV vancomycin pharmacy to dose Given a dose of Solu-Medrol 125 mg once and started IV Solu-Medrol 40 mg IV b.i.d. Follow up with blood culture and daily labs Hypoxemic respiratory failure 2/2 multifocal pneumonia Differentials-congestive heart failure as patient's pro [id number] Patient is currently on 4 L oxygen maintaining a saturation 94 Started patient on IV Zosyn and IV vancomycin pharmacy to dose Given a dose of Solu-Medrol 125 mg once and started IV Solu-Medrol 40 mg IV b.i.d. Followed up with blood culture and daily labs Followed up with echocardiogram Acute kidney injury 2/2 vasomotor neuropathy BUN-32, creatinine-1.88 Patient received IV fluids in ED , stopped IV fluids Troponinemia possibly secondary to sepsis Type 2 UT Initial troponin-405, 338 trending down History of chronic pain Started on home med gabapentin Continued home med after medication reconciliation she has been afebrile and getting discharged home and stable for transfer. Sushil sotelo is seen and examined on the day of discharge. All labs, diagnostic workup and discharge plan discussed with patient, patient's , her mom and other family members in detail before her discharge. ALL questions and queries answered to the best of my professional medical knowledge. I heard patient's concerns and address appropriately. Discharge instructions provided to the patient. patient needs follow up with PCP , sourcing specialist in out patient service . patient needs oxygen at the time of discharge . Activity as tolerated. please Monitor basic metabolic panel CBC sed rate and procalcitonin in 3-5 days with PCP. PATIENT FOLLOWS IN [facility] PCP, THEN MAIN DOCTOR IS IN [facility] WHO IS TAKING CARE OF PATIENT'S METASTATIC COLON CANCER. PER PATIENT'S FAMILY MEMBER PATIENT HAD MULTIPLE ROUNDS OF CHEMOTHERAPY AND OTHER TREATMENT DONE WITH DRUM SAW OPERATOR. PATIENT'S OXYGENATION DROPPED DOWN TO 81 AT HOME AND THEY OVERHEARD SOMEBODY SAYING THAT HER OXYGENATION IS 77. PATIENT WAS REQUIRING 3 L AND SATURATING 92% WHEN I EVALUATED THE PATIENT. I discussed patient's updated medical condition with all of them. Patient's advanced care directive also discussed in visit. Honest and open dialogue regarding regarding her diagnosis of stage IV colon cancer with metastasis to pulmonary, hepatic and lymphatic metastatic disease. PATIENT AND PATIENT'S FAMILY MEMBER GOT OFFENDED AND THEY COMPLAIN ABOUT ME IN ADMINISTRATION . I WENT BACK TO THE ROOM 3028/B TO HEAR THEIR CONCERNS AND APOLOGIZED TO THEM THAT THEY FELT THAT WAY BUT I ALSO EXPLAINED TO PATIENT'S MOTHER AT THE SAME TIME THAT SO MANY PEOPLE THEY DO NOT EVEN KNOW THERE MEDICAL HISTORY , DIAGNOSIS AND PROGNOSIS IT IS MY PROFESSIONAL DUTY TO TELL THEM HONESTLY ABOUT THEIR MEDICAL CONDITION. WILL LEAVE SAW THIS PATIENT FOR TODAY MAY 13, 2025. PATIENT'S MOTHER MENTIONED TO ME THAT I CAME ACROSS VERY STRONG AND WAS OFFENSIVE. SHE CAME HERE ONLY FOR ONE THING AND DOES NOT WANT TO TALK TO ME AGAIN. PATIENT IS ALREADY EMOTIONALLY DEALING WITH LOT OF PEOPLE AND SO MUCH HURT IS ALREADY GOING ON. SHE DOES NOT WANT TO HEAR WHAT I EXPLAINED TO HER. PATIENT'S MOTHER DISCUSSED WITH ME IN LENGTH WHAT IS GOING ON IN PATIENT'S LIFE SINCE 2020 . WHICH I HEARD AND EXPRESS MY EMPATHY TOWARDS HER. PATIENT IS VERY EAGER TO GO HOME AND WANTS TO GET DISCHARGED TODAY. FAMILY MEMBERS WILLING TO TAKE HER TO TODAY . I WAS DOING MY PROFESSIONAL DUE DILIGENCE IN EXPLAINING EVERYTHING TO HER. I WAS VERY PROFESSIONAL POLITE DURING ALL MY CONVERSATION AND NURSING STAFF SEMAJ WAS PRESENT. LONG-TERM PROGNOSIS VERY POOR GENERAL- AWAKE ORIENTED, CHRONICALLY ILL-APPEARING, AGE-APPROPRIATE HEENT-ATRAUMATIC NORMOCEPHALIC, NECK SUPPLE WITHOUT ELEVATED JVD NO LYMPHADENOPATHY BILATERALLY. EYES-NO ICTERUS OR PALLOR SEEN IN EYES CHEST-COARSE BREATH SOUNDS WITH CRACKLES TO AUSCULTATION BILATERALLY, BREATHING NONLABORED NO TACHYPNEA, NO WHEEZING, HEART-S1-S2 NORMAL, REGULAR HEART RATE NO MURMUR, CHEMO PORT PRESENT OVER RIGHT SIDE OF THE CHEST ABDOMEN BOWEL SOUNDS POSITIVE ON AUSCULTATION, SOFT NONDISTENDED NONTENDER NO GUARDING, NO RIGIDITY SKIN NO ACTIVE SKIN RASH NEUROLOGY-GROSSLY INTACT, NONFOCAL AWAKE ORIENTED EXTREMITY- TRACE PEDAL EDEMA ABLE TO MOVE ALL 4 EXTREMITIES PSYCHIATRY - PATIENT IS NOT CONFUSED OR AGITATED COOPERATED DURING PHYSICAL EXAMINATION *Problems/Diagnosis: (1) Hypoxic Status: Acute Total Time Spent on D/C: > 30 Minutes Date of Service: May 13, 2025 Billing Provider: OLIVA ZARCO MD Common Visit Codes: [id number] INP/OBS CARE(HIGH) Secondary Visit Codes: [id number] CARE PLAN 30 MINUTES OLIVA ZARCO MD May 13, 2025 19:14
[2025-05-13] MEDS ORDERED: methadone 5mg tablet PO SCH (20:00)
[2025-05-14] MEDS ORDERED: VANCOMYCIN LEVEL IV ONE (22:30)
== END 2025-05-13 18:05 | disposition home health service (06) | DRG 871 ==
LOC: ER 13:33 → UNDOADMIN 19:39 → ED HOLD 19:39 → PCU 3S 22:45
PROVIDERS: ADMIT Internal Medicine Critical Care Medicine; ATTEND Internal Medicine
PROC: B32T1ZZ Computerized Tomography (CT Scan) of Left Pulmonary Artery using Low Osmolar Contrast (ICD-10-PCS; principal; 2025-05-12)
PROC: B32S1ZZ Computerized Tomography (CT Scan) of Right Pulmonary Artery using Low Osmolar Contrast (ICD-10-PCS; 2025-05-12)
DX: A41.9 Sepsis, unspecified organism (principal); I21.A1 Myocardial infarction type 2; J18.9 Pneumonia, unspecified organism; J96.91 Respiratory failure, unspecified with hypoxia; N17.0 Acute kidney failure with tubular necrosis; C78.00 Secondary malignant neoplasm of unspecified lung; C78.7 Secondary malignant neoplasm of liver and intrahepatic bile duct; C18.9 Malignant neoplasm of colon, unspecified; Z20.822 Contact with and (suspected) exposure to COVID-19; G62.9 Polyneuropathy, unspecified
CPT/HCPCS: 36415; 71045; 71275; 80048; 80053; 83605; 83880; 84145; 84484; 85007; 85025; 85379; 85610; 85651; 85730; 86140; 87040; 87081; 87804; 87811; 93005; 93306; 94640; 94760; 96365; 99285; A4615; G0378; J0456; J0696; J1644; J1938; J2270; J2543; J2919; J3373; J7030; J7040; Q9967